=== PATIENT | female | born 1940 | race Caucasian/White ===

== ENCOUNTER → 2020-01-29 | Outpatient (CLI) | payer MEDICARE, OTHER | LOC: LAB 07:40 → LAB SHORT 07:40 → PLD 07:40 | DX: D48.5 Neoplasm of uncertain behavior of skin (principal) | CPT/HCPCS: 88341; 88342 ==

== ENCOUNTER → 2022-03-16 | Outpatient (CLI) | payer MEDICARE | END | disposition home or self-care (01) | LOC: LAB SHORT 09:18 | DX: L08.9 Local infection of the skin and subcutaneous tissue, unspecified (principal) | CPT/HCPCS: 87070; 87077; 87186; 87205 ==